=== PATIENT | male | born 1990 | race Caucasian/White ===

== ENCOUNTER 2020-05-19 08:05 | Outpatient (REF) | payer MEDICARE, MEDICAID, SELFPAY ==
--- NOTE | 2020-05-19 08:10 | CT_ITS ---
EXAMINATION: CT SOFT TISSUE NECK WITH CONTRAST CLINICAL INFORMATION: Dysphagia. COMPARISON: None TECHNIQUE: Following the intravenous administration of 100 mL of Omnipaque 350 intravenous contrast, helical imaging was performed in the axial plane with generation of coronal and sagittal reformatted images. This CT examination was performed using dose optimization techniques as appropriate, variously including the following: *Automated exposure control *Adjustment of mA and/or kV according to patient size (this includes techniques or standardized protocols for targeted exams where dose is matched to indication/reason for exam; i.e. extremities or head) *Use of iterative reconstruction technique DLP: 279 mGy-cm FINDINGS: No cervical adenopathy is identified. The parotid glands are homogeneous in attenuation. The submandibular glands are normal. No contour abnormality or pathologic enhancement is seen within the oral cavity or pharyngeal mucosal space. The laryngeal structures are normal. The parapharyngeal fat is preserved. The carotid sheath vasculature opacify normally. No extra mucosal soft tissue mass or fluid collection is seen. No retropharyngeal fluid collection is seen. The thyroid gland is normal. The superior mediastinum is unremarkable. The lung apices are clear. The mastoid air cells and visualized portions of the paranasal sinuses are well-aerated. The temporomandibular joints are normal. No periapical disease is identified. No osseous abnormalities are seen. The imaged portions of the brain parenchyma are unremarkable. CT/CT soft tissue neck w con IMPRESSION: Unremarkable CT neck with contrast.
[2020-05-19] MEDS: iohexoL 350 MG/ML 100 ML INFUS..BTL 60 ML IV (08:46)
== END 2020-05-19 08:06 | disposition home or self-care (01) ==
LOC: HO.CT 08:05
PROVIDERS: PCP Internal Medicine; Visit Provider Otolaryngology
DX: R13.10 Dysphagia, unspecified (principal)
CPT/HCPCS: 70491; Q9967

== ENCOUNTER 2020-06-12 09:33 | Outpatient (REF) | payer MEDICARE, MEDICAID, SELFPAY ==
--- NOTE | 2020-06-12 09:37 | FL_ITS ---
EXAMINATION: FL BARIUM SWALLOW CLINICAL INFORMATION: Dysphagia. COMPARISON: None TECHNIQUE: Barium swallow examination is performed using fluoroscopic evaluation in addition to multiple fluoroscopic spot views. The patient is imaged both upright and prone and using both thick and thin sulfate along with effervescent granules. Fluoroscopy time: 2.0 minutes DAP: 7.54 Gycm2 Images: 66 FINDINGS: Following oral administration of thick barium and barium-coated turkey in upright view there is normal propagation of bolus from the oral cavity through the pharynx, esophagus into stomach without any evidence of obstruction, narrowing or stricture. On oral administration of barium tablet with water there was spontaneous clearance of the tablet through the esophagus into the stomach. On placing patient prone lying and oral administration of thin barium there is normal flow of barium through the esophagus into stomach without any evidence of obstruction, narrowing or stricture. FL/FL barium swallow IMPRESSION: Unremarkable barium swallow exam.
== END 2020-06-12 09:34 | disposition home or self-care (01) ==
LOC: HO.XRAY 09:33
PROVIDERS: Visit Provider Otolaryngology
DX: R13.10 Dysphagia, unspecified (principal)
CPT/HCPCS: 74220

== ENCOUNTER 2021-11-05 23:03 | Emergency (ER) | payer MEDICARE, MEDICAID, SELFPAY ==
--- NOTE | ~2021-11-05 | XR_ITS ---
EXAMINATION: XR WRIST, LEFT XR WRIST, RIGHT CLINICAL INFORMATION: Pain and swelling COMPARISON: 04/23/2012 TECHNIQUE: 4 views of the left wrist. 4 views of the right wrist. FINDINGS: Left wrist: Osseous alignment is anatomic. No acute fracture is seen. Subtle tiny calcific density near the radial styloid is unchanged from 2012. Mild soft tissue swelling is suspected near the distal radius. Right wrist: Osseous alignment is anatomic. No acute fracture is seen. Soft tissue swelling is present adjacent to the distal radius. XR/XR wrist RT min 3V IMPRESSION: Soft tissue swelling near the distal radius, right greater than left. No acute osseous findings.
--- NOTE | ~2021-11-05 | XR_ITS ---
EXAMINATION: XR WRIST, LEFT XR WRIST, RIGHT CLINICAL INFORMATION: Pain and swelling COMPARISON: 04/23/2012 TECHNIQUE: 4 views of the left wrist. 4 views of the right wrist. FINDINGS: Left wrist: Osseous alignment is anatomic. No acute fracture is seen. Subtle tiny calcific density near the radial styloid is unchanged from 2012. Mild soft tissue swelling is suspected near the distal radius. Right wrist: Osseous alignment is anatomic. No acute fracture is seen. Soft tissue swelling is present adjacent to the distal radius. XR/XR wrist LT min 3V IMPRESSION: Soft tissue swelling near the distal radius, right greater than left. No acute osseous findings.
[2021-11-05 23:04] VITALS: BP 128/87; PULSE 88; RESP 20; TEMP 36.3; O2SAT 96; BMI 22.6
--- NOTE | 2021-11-05 23:58 | ED_ITS ---
HPI - Extremity Problem General Chief complaint: Extremity Injury, Upper Stated complaint: wrist fracture? Time Seen by Provider: 11/05/21 23:58 Source: patient Mode of arrival: ambulatory Limitations: no limitations History of Present Illness HPI Narrative: Patient complaining of bilateral wrist pain after being cuffed at the court and just released by the police department been complaining of the pain in the thumb of both hands and at the site where cuffs were applied no other injuries Related Data Previous Rx's Medication Instructions Recorded ibuprofen 600 mg tablet 600 mg PO Q6H PRN #20 tab 11/06/21 Allergies Allergy/AdvReac Type Severity Reaction Status Date / Time No Known Allergies Allergy Unverified 11/05/21 23:09 Review of Systems Review of Systems: Yes all other systems are reviewed and are negative [facility] Social History Social History Advance Directives: No Physical Exam Vital Signs: Vital Signs: Last Vital Signs Temp 97.4 F 11/05/21 23:04 Pulse 88 11/05/21 23:04 Resp 20 11/05/21 23:04 BP 128/87 11/05/21 23:04 Pulse Ox 96 11/05/21 23:04 BMI result Body Mass Index 22.6 Extrem: Elbow/forearm/wrist images: 1. Superficial bruising the dorsum of the right wrist with good range of movement no tendon injury neurovascular intact 2. Superficial bruising the dorsum of the left wrist with good range of movement no tendon injury neurovascular intact MDM - Extremity (Nontraumatic) MDM Narrative Medical decision making narrative: Patient with minor contusion of bilateral wrist with superficial abrasion on the right wrist more than the left x-ray negative for any bony injury Discharge Plan Discharge Clinical Impression: Contusion of left wrist, Contusion of right wrist Patient Disposition: Home, Self-Care Instructions: Wrist Injury (ED) Additional Instructions: You have soft tissue injury of both wrist Apply ice rest and take ibuprofen for pain as advised Follow with PCP if any concerns Prescriptions: New ibuprofen 600 mg tablet 600 mg PO Q6H PRN (Reason: pain) Qty: 20 0RF Interventions: ED Discharge Assessment Last Done: 11/06/21 00:38 Discharge Date/Time: 11/06/21 00:42
--- NOTE | 2021-11-06 00:37 | PC.NURSE ---
Assumed care of pt Pt c/o bilateral wrist pain after being cuffed in longterm. Redness and scratches on bilateral wrist ROM intact
== END 2021-11-06 00:42 | disposition home or self-care (01) ==
LOC: HO.ED 11-06 00:40
PROVIDERS: Emergency Provider Internal Medicine; PCP Internal Medicine
DX: S60.211A Contusion of right wrist, initial encounter (principal); S60.212A Contusion of left wrist, initial encounter; Y29.XXXA Contact with blunt object, undetermined intent, initial encounter; Y93.9 Activity, unspecified; Y92.240 Courthouse as the place of occurrence of the external cause; Y99.9 Unspecified external cause status
CPT/HCPCS: 73110; 99283

== ENCOUNTER → 2022-03-24 13:55 | Outpatient (BNVA) | payer MEDICARE, MEDICAID, SELFPAY | PROVIDERS: PCP Internal Medicine; Referring Provider Internal Medicine; Visit Provider Physician Assistant | DX: K64.8 Other hemorrhoids (principal); R45.89 Other symptoms and signs involving emotional state; F41.9 Anxiety disorder, unspecified | CPT/HCPCS: 99202 ==

== ENCOUNTER → 2022-04-14 13:32 | Outpatient (BNVA) | payer MEDICARE, MEDICAID, SELFPAY | PROVIDERS: PCP Internal Medicine; Referring Provider Physician Assistant; Visit Provider Surgery | DX: K64.9 Unspecified hemorrhoids (principal) | CPT/HCPCS: 46600; 99202 ==

== ENCOUNTER 2023-11-07 12:45 | Emergency (ER) | payer OTHER, SELFPAY ==
--- NOTE | 2023-11-07 13:07 | ED.GENADULT ---
HPI - General Adult General Chief complaint: Behavioral Concerns Stated complaint: BECAME AGGR/BARRICADED SELF IN APT DURING EVICTION Time Seen by Provider: 11/07/23 13:07 History of Present Illness HPI narrative: The patient is a 33-year-old male who was brought to the hospital after becoming agitated when police were affecting him from his apartment. The circumstances of the event are somewhat unclear. The patient states that the police arrived unexpectedly today and that he had not received any appropriate legal documents indicating he was to be evicted. He was apparently reluctant to be evicted and police describe him as barricading himself in his apartment and becoming very agitated. He was ultimately placed in handcuffs and brought to the hospital by ambulance. The patient spoke at some length about an ongoing eviction process. He states that he has submitted an appeal to the [place] [employer]. He denies suicidality or homicidality. He denies having any weapons. He denies fever, sweats, chills. Related Data Home Medications ?Medication ?Instructions ?Recorded ?Confirmed cyclosporine 0.05 % eye drops in a 1 drp ophthalmic (eye) BID 03/24/22 11/07/23 dropperette (Restasis) quetiapine 50 mg tablet 50 mg PO DAILY 03/24/22 11/07/23 temazepam 30 mg capsule 30 mg PO ONCE 03/24/22 11/07/23 dextroamphetamine-amphetamine ER 1 cap PO QAM 11/07/23 11/07/23 10 mg 24hr capsule,extend release Previous Rx's ?Medication ?Instructions ?Recorded cyclosporine 0.05 % eye drops in a 1 drp ophthalmic (eye) Q12H #60 ea 11/07/23 dropperette (Restasis) dextroamphetamine-amphetamine ER 10 mg PO DAILY #2 caps 11/07/23 10 mg 24hr capsule,extend release Allergies Allergy/AdvReac Type Severity Reaction Status Date / Time No Known Allergies Allergy Verified 11/07/23 13:49 Review of Systems Review of Systems: Yes all other systems are reviewed and are negative [facility] Past Medical History Medical History (Updated 11/07/23 @ 17:45 by Odilon Edwards MD) Bleeding hemorrhoids Hemorrhoids Testicular torsion Family History Family History Maternal Grandmother Lung cancer Paternal Grandfather Lung cancer Social History Social History Alcohol intake: never Patient Tobacco Use Status: Never used Tobacco Smoked in Last 30 Days: No Use of substances other than those prescribed or required for medical reasons: No Advance Directives: No Advance Directives Information Provided: No Do you have a plan to hurt others: No Plan Current occupational status: disabled Physical Exam ED Vital Signs: Vital Signs - 24 hr 11/07/23 13:44 11/07/23 13:57 11/07/23 17:49 Temperature 98.7 F Pulse Rate 77 Respiratory Rate 18 18 16 Blood Pressure 118/84 Pulse Oximetry 99 Oxygen Delivery Method Room Air Room Air 11/07/23 17:50 Temperature 98.7 F Pulse Rate 77 Respiratory Rate 16 Blood Pressure 118/84 Pulse Oximetry 99 Oxygen Delivery Method Room Air BMI result Body Mass Index 21.0 Const Other: The patient is a thin, slight 33-year-old male. He is awake and alert and does not appear acutely ill. He has an intense affect. HENMT Other: Face is symmetrical. Mucous membranes moist Eyes Other: Pupils round equal, no scleral icterus Neck Other: No neck swelling, moving his neck easily Resp Effort & Inspection: normal respiratory effort Auscultation: clear to auscultation bilaterally Cardio Rate: regular rate Rhythm: regular rhythm Heart sounds: S1 normal heart sound present and S2 normal heart sound present Neuro Other: The patient is awake and alert. Cranial nerves 2 through 12 are intact. He moves his extremities normally. He has not seem to have any neurological deficits. Extrem Other: No swelling of the extremities Psych Other: The patient is awake and alert. Not obviously unkempt. He has a very intense affect. Seems to have some grandiosity as evidenced by his referral to the superior court. He has some paranoia as evidenced by referring to the health care system as being part and parcel of the police. Medical Decision Making Medical Decision Making MDM Narrative: The patient is at the emergency room after being brought here following a confrontation with police during an eviction process. The patient initially seemed angry and agitated but did not seem suicidal or homicidal. It was my impression that the patient seems to have some chronic behavioral health issues. The patient was seen by the care team. Additionally I spoke to the patient's father who came to the emergency room. Once the patient's father was here the patient seemed much calmer and more reasonable. The father feels the patient's behavior is close to his baseline and feels comfortable with the patient being discharged from the hospital. The care team clinician likewise after the discussion between myself and the father and the care team clinician. Therefore ultimately we agree that there was no indication for emergency room against his will. The patient reiterates that he is neither suicidal nor homicidal. The patient was concerned that he would not have access to his medications because they were in the apartment from which he was evicted. I contacted his pharmacy. 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 Additionally I wrote a 2 day prescription Adderall and I also wrote a prescription for Restasis eyedrops. Lab Data 11/07/23 15:07 11/07/23 15:07 Labs: Lab Results 11/07/23 11/07/23 11/07/23 Range/Units 13:30 13:31 15:07 WBC 10.3 (4.8-10.8) X10*3/uL RBC 5.37 (4.60-5.80) X10*6/uL Hgb 17.1 (14.0-18.0) g/dl Hct 47.7 (42.0-52.0) % MCV 88.8 (80.0-98.0) fL MCH 31.8 (27.0-33.0) pg MCHC 35.8 (31.0-36.0) g/dl RDW 12.3 (11.0-16.0) % Plt Count 224 (160-400) X10*3/uL MPV 9.5 (9.4-12.4) fL Immature Gran % (Auto) 0.3 (0.0-0.4) % Neut % (Auto) 85.4 H (45-73) % Lymph % (Auto) 6.6 L (20-40) % Mitchell % (Auto) 7.5 (2-11) % Eos % (Auto) 0.1 (0-4) % Baso % (Auto) 0.1 (0-2) % Lymph # (Auto) 0.7 L (1.2-4.9) X10*3/uL Mitchell # (Auto) 0.8 (0.1-1.2) X10*3/uL Eos # (Auto) 0.0 (0.0-0.4) X10*3/uL Baso # (Auto) 0.0 (0.0-0.2) X10*3/uL Abs Immat Gran (auto) 0.03 (0.00-0.03) X10*3/uL Absolute Neuts (auto) 8.8 H (2.0-8.3) x10*3/uL Absolute Nucleated RBC 0.000 (0.0-0.012) X10*3/uL Nucleated RBC % (auto) 0.0 (0.0-0.2) /100WBC Sodium 140 (135-145) mmol/L Potassium 4.3 (3.3-5.1) mmol/L Chloride 108 (96-108) mmol/L Carbon Dioxide 27 (22-29) mmol/L Anion Gap 9 L (12-20) BUN 14 (9-16) mg/dL Creatinine 1.06 (0.5-1.4) mg/dL Estim Creat Clear Calc 82.6 Estimated GFR > 60 Random Glucose 95 (60-115) mg/dL Calcium 9.9 (8.4-10.2) mg/dL Total Bilirubin 0.8 (0.0-1.0) mg/dL AST 17 (5-37) U/L ALT 15 (0-40) U/L Alkaline Phosphatase 109 (39-117) U/L Total Protein 7.5 (6.5-8.0) g/dL Albumin 4.8 (3.5-5.0) g/dL Urine Color Yellow Urine Appearance Clear Urine pH 5.5 (5.0-9.0) Ur Specific [place] 1.020 (1.005-1.025) Urine Protein Trace (Neg-Trace) mg/dL Urine Glucose (UA) Negative (Negative) mg/dL Urine Ketones Negative (Negative) mg/dL Urine Blood Negative (Negative) Urine Nitrite Negative (Negative) Ur Leukocyte Esterase Negative (Negative) Urine Opiates Screen Not Detected (Not Detect) Ur Buprenorphine Scrn Not Detected (Not Detect) ng/mL Ur Oxycodone Screen Not Detected (Not Detect) ng/mL Urine Methadone Screen Not Detected (Not Detect) ng/mL Urine Fentanyl Screen Not Detected (Not Detect) Ur Barbiturates Screen Not Detected (Not Detect) Ur Phencyclidine Scrn Not Detected (Not Detect) Ur Amphetamines Screen POSITIVE H (Not Detect) U Benzodiazepines Scrn POSITIVE H (Not Detect) Urine Cocaine Screen Not Detected (Not Detect) U Marijuana (THC) Screen Not Detected (Not Detect) Ethyl Alcohol < 10 mg/dL Discharge Plan Discharge Clinical Impression: Encounter for behavioral health screening Patient Disposition: Home, Self-Care Additional Instructions: I have contacted your pharmacy. They tell me that they should be able to provide you with your regular next prescription for the quetiapine and the temazepam. I have sent a prescription for 2 tablets of the dextroamphetamine amphetamine to tide you over until your next prescription is available. Please contact your therapist and your prescriber tomorrow to discuss the episodes of today. If at any point you wish to speak to somebody confidentially about how you are feeling you can contact the crisis hotline at [phone]. Return to the emergency room if significantly worse. Prescriptions: New dextroamphetamine-amphetamine 10 mg capsule,extended release 24hr 10 mg PO DAILY Qty: 2 0RF Rx Instructions: Partial Fill upon patient request. cyclosporine [Restasis] 0.05 % dropperette 1 drp ophthalmic (eye) Q12H Qty: 60 0RF No Action dextroamphetamine-amphetamine 10 mg capsule,extended release 24hr 1 cap PO QAM temazepam 30 mg capsule 30 mg PO ONCE quetiapine 50 mg tablet 50 mg PO DAILY cyclosporine [Restasis] 0.05 % dropperette 1 drp ophthalmic (eye) BID Interventions: ED Discharge Assessment Last Done: 11/07/23 17:50 Discharge Date/Time: 11/07/23 17:55 Print Language: Faroese
[2023-11-07 13:40] LABS: Appearance Urine Clear; Color Urine Yellow; Glucose Urine UA Negative (Negative); Leukocyte Esterase Urine Negative (Negative); Nitrite Urine Negative (Negative); PH 5.5 (5.0-9.0); Urine Blood Negative (Negative); Urine Ketones Negative (Negative); Urine Protein Trace mg/dL (Neg-Trace)
[2023-11-07 13:44] VITALS: RESP 18; BMI 21.0
[2023-11-07 13:52] LABS: Amphetamine Screen Urine POSITIVE (Not Detect); Barbiturates, Urine Not Detected (Not Detect); Benzodiazepines Screen Urine POSITIVE (Not Detect); Buprenorphine Scr Not Detected (Not Detect); Cannabinoid Screen Urine Not Detected (Not Detect); Cocaine Screen Urine Not Detected (Not Detect); Fentanyl, urine Not Detected (Not Detect); Methadone Screen, Urine Not Detected (Not Detect); Opiate Screen Urine Not Detected (Not Detect); Oxycodone Screen Urine Not Detected (Not Detect); Phencyclidine Screen Urine Not Detected (Not Detect)
[2023-11-07 13:57] VITALS: RESP 18
--- NOTE | 2023-11-07 13:58 | PC.NURSE ---
PT was BIBA accompanied by PD on a section 12 after the patient barricaded himself during a court scheduled eviction, aggressive behavior, non-compliance and distorted reality. Upon arrival to the pod the patient is anxious, agitated, condescending, irritable and aggressive with staff. The patient is following staff direction at this time. Patient was changed over into hospital attire and belongings have been inventoried. The patients thought process is circumstantial and when asking assessment questions the patient answers with complaints about the police, his eviction and a car dealership. PT is not compliant with vital signs and blood draw at this time.
--- NOTE | 2023-11-07 14:55 | PC.NURSE ---
Pt agitated, shouting at staff. Able to be redirected at this time. MD Edwards made aware pt is escalating and may require IM meds in the future.
[2023-11-07 15:11] LABS: MANUAL DIFF FLAG NO
[2023-11-07 15:12] LABS: Basophils Percent Auto 0.1 % (0-2); Eosinophils Percent Auto 0.1 % (0-4); Hematocrit 47.7 % (42.0-52.0); Hemoglobin 17.1 g/dl (14.0-18.0); Imm Gran Abs Auto 0.03 X10*3/uL (0.00-0.03); Imm Gran Pct Auto 0.3 % (0.0-0.4); Lymphocytes Absolute Auto 0.7 X10*3/uL (1.2-4.9); Lymphocytes Percent Auto 6.6 % (20-40); Mean Corpuscular HGB Conc 35.8 g/dl (31.0-36.0); Mean Corpuscular Hemoglobin 31.8 pg (27.0-33.0); Mean Corpuscular Volume 88.8 fL (80.0-98.0); Mean Platelet Volume 9.5 fL (9.4-12.4); Monocytes Absolute Auto 0.8 X10*3/uL (0.1-1.2); Monocytes Percent Auto 7.5 % (2-11); Neutrophils Absolute Auto 8.8 x10*3/uL (2.0-8.3); Neutrophils Percent Auto 85.4 % (45-73); Platelet Count 224 X10*3/uL (160-400); Red Blood Count 5.37 X10*6/uL (4.60-5.80); Red Cell Distribution Width 12.3 % (11.0-16.0); White Blood Count 10.3 X10*3/uL (4.8-10.8)
[2023-11-07 15:45] LABS: Alanine Aminotransferase 15 U/L (0-40); Albumin Level 4.8 g/dL (3.5-5.0); Alkaline Phosphatase 109 U/L (39-117); Anion Gap 9 (12-20); Aspartate Amino Transferase 17 U/L (5-37); Bilirubin Total 0.8 mg/dL (0.0-1.0); Blood Urea Nitrogen 14 mg/dL (9-16); Calcium 9.9 mg/dL (8.4-10.2); Carbon Dioxide 27 mmol/L (22-29); Chloride 108 mmol/L (96-108); Creatinine Clr Calc Pharmacy 82.6; Estimated Glomerular Filt Rate > 60; Ethanol < 10 mg/dL; Glucose Random 95 mg/dL (60-115); Potassium 4.3 mmol/L (3.3-5.1); Sodium 140 mmol/L (135-145); Total Protein 7.5 g/dL (6.5-8.0)
[2023-11-07 17:49] VITALS: BP 118/84; PULSE 77; RESP 16; TEMP 37.1; O2SAT 99
[2023-11-07 17:50] VITALS: BP 118/84; PULSE 77; RESP 16; TEMP 37.1; O2SAT 99
== END 2023-11-07 17:55 | disposition home or self-care (01) ==
PROVIDERS: Emergency Provider Emergency Medicine; PCP Internal Medicine
DX: R45.4 Irritability and anger (principal); Z13.30 Encounter for screening examination for mental health and behavioral disorders, unspecified; Z79.899 Other long term (current) drug therapy; Z59.89 Other problems related to housing and economic circumstances
CPT/HCPCS: 36415; 80053; 80307; 81003; 85025; 99284; S9485